=== PATIENT | female | born 1985 | race Caucasian/White ===

== ENCOUNTER 2018-05-02 15:43 | Emergency (ER) | payer OTHER, SELFPAY ==
[2018-05-02 15:45] VITALS: BP 117/66; PULSE 117; RESP 16; TEMP 36.1; O2SAT 99; BMI 23.8
--- NOTE | 2018-05-02 16:07 | ED.DCSUM_ITS ---
- ER Visit Summary Date of Service: 05/02/18 Chief Complaint: Nausea, vomiting, diarrhea History of Present Illness: The patient is a 32 F who woke early this morning feeling ill. She had nausea, vomiting, and diarrhea since 6 AM. She had symptoms of fevers and chills. No one else at home is sick. She does note some dysuria in a dark color to her urine. She is currently 4 months . She has been feeling movement today. She has not had any bleeding or spotting. Physical Examination: Vital signs significant for heart rate of 117, otherwise unremarkable. Patient is lying in bed no acute distress. She is nontoxic appearing. Head neck examination is unremarkable. Heart is tachycardic and regular. Lungs sounds are clear. Abdomen is soft with mild diffuse tenderness. No guarding or rebound. Hypoactive bowel sounds are noted throughout. Test Results: CBC was normal white count with a left shift. Chemistry studies reveal a potassium 3.4. Emergency Department Course and Treatment: Patient is given IV fluids. Zofran was initially ordered but she refused this. She later accepted a dose of Phenergan. heart tones are measured at 152. On repeat examination patient states she still feels nauseated but has been able to tolerate p.o. without difficulty. She will be given a dose of Tylenol and another dose of Phenergan at this time and then will be discharged home. She will get a pr escription for Phenergan that they can fill if needed. Treatment Plan: [] Disposition: Discharge Impression: Vomiting, improved This note was generated with [facility] [employer] dictation software. It may contain incorrect words, spelling, and punctuation that were not noted in review of the chart prior to signing ED Disposition - Plan for ED Patient: Chief Complaint: Nausea/Vomiting/Diarrhea Referrals: Brianna Harris MD [STAFF PHYSICIAN] -
[2018-05-02] MEDS: 0.9% Normal Saline 1,000 ML 1000 ML IV (16:34)
[2018-05-02 16:36] LABS: Absolute Lymphocyte Count 0.26 X10^3/ul (0.83-4.51); Absolute Neutrophil Count 5.6 X10^3/uL (2.0-7.7); Basophil# 0.01 X10^3/uL; Basophil% 0.2 % (0-1); Eosinophil# 0.01 X10^3/uL; Eosinophils% 0.2 % (0-5); Hematocrit 38.4 % (37-47); Hemoglobin 13.3 g/dl (12.0-15.0); Lymphocyte # 0.26 X10^3/ul (4.0); Lymphocyte % 4.2 % (19-41); Mean Corp Hgb Conc 34.6 g/gl (32-36); Mean Corpuscular Hgb 31.7 pg (27.0-32.0); Mean Corpuscular Volume 91.4 fL (81-99); Mean Platelet Vol. 8.8 fl (6.2-12.0); Monocyte# 0.26 X10^3/uL; Monocyte% 4.2 % (0-10); Neutrophil # 5.59 X10^3/uL (2.7-7.7); Platelet Count 194 K/mm3 (150-450); RBC Distribution Width SD 42.5 fl (35.1-43.9); White Blood Count 6.1 K/mm3 (4.4-11.0)
[2018-05-02 16:47] LABS: Anion Gap 10 (5-15); BUN 13 mg/dL (7-18); BUN/Creat Ratio 25.7 RATIO (10-20); Calcium,Total 8.3 mg/dL (8.5-10.1); Chloride 108 mmol/L (98-107); Creatinine, Serum 0.51 mg/dL (0.55-1.02); EST Glomerular Filtration Rate 148 mL/min (>60); Est Glom Filt Rate - Afr Amer 179 mL/min (>60); Estimated Creatinine Clearance 122.93 ml/min; Glucose 116 mg/dL (74-106); Potassium 3.4 mmol/L (3.5-5.1); Sodium Level 140 mmol/L (136-145)
[2018-05-02 17:05] LABS: Differential Indicated SCAN CRITERIA MET; POSITIVE COUNT NO; POSITIVE DIFFERENTIAL YES; POSITIVE MORPHOLOGY NO
[2018-05-02 17:06] LABS: Platelet Estimate ADEQUATE (ADEQ); Red Cell Morphology NORM C+C NORMAL (NORM C&C)
[2018-05-02] MEDS: proMETHazine 25 MG/ML Syringe 12.5 MG IV ×2 (18:32→20:29)
[2018-05-02 18:35] VITALS: BP 112/75; PULSE 109; RESP 14; O2SAT 100
[2018-05-02] MEDS: 0.9% Normal Saline 1,000 ML 150 ML IV (18:35)
[2018-05-02 18:53] LABS: Red Blood Cells-Urine 0 SEEN /hpf (0-5)
[2018-05-02 18:57] LABS: Color, Urine Yellow (Yellow); Glucose, Dipstick Normal (Normal); Leukocyte Esterase-Dipstick Negative /ul (Negative); Nitrite-Dipstick Negative (Negative); Occult Blood-Urine Negative /ul (Negative); Protein-Dipstick Negative (Negative); Urine Bilirubin Dipstick Negative (Negative); Urine Clarity Sl. Cloudy (Clear); Urine Urobilinogen Normal (Normal)
[2018-05-02 19:04] LABS: Ketone-Dipstick 150 mg/dl (Negative)
[2018-05-02 19:05] LABS: Squamous Epithelial Cells - UA 0-5 SEEN /hpf (5-10)
[2018-05-02 19:06] LABS: Bacteria 1+ /hpf (None Seen); Mucous, Urine 1+ /hpf (<or=2+); White Blood Cells 0-5 SEEN /hpf (0-5)
--- NOTE | 2018-05-02 20:12 | ED.DEP ---
ED Disposition - Plan for ED Patient: Disposition: Home or Assisted Living Chief Complaint: Nausea/Vomiting/Diarrhea Instructions: ED Nausea Vomiting Prescriptions: proMETHazine tablet [Phenergan] 25 mg PO Q6H PRN PRN #10 tablet PRN Reason: Nausea Referrals: Brianna Harris MD [STAFF PHYSICIAN] - Amna Naylor MD [STAFF PHYSICIAN] -
[2018-05-02] MEDS: Acetaminophen 500 MG Tablet 1000 MG PO (20:29)
[2018-05-02 20:34] VITALS: BP 108/79; PULSE 108; RESP 17; TEMP 38.3; O2SAT 99
--- NOTE | 2018-05-02 21:07 | ED.RN ---
prior to d/c dr informed of pt fever. pt was already given oral Tylenol for pain control. pt given d/c instructions and told to continue taking tylenol for fever at home if needed. pt was reluctant to leave. [facility] [place] [id number]
--- OUTSIDE RECORDS SUMMARY | 2018-08-04 09:38 | XMS RPT_ITS ---
:1985 Author Organization [facility] Care Team Providers Name Role Phone LARS RESENDEZ (DIOR) Attending Unavailable LARS RESENDEZ (DIOR) Attending Unavailable LARS RESENDEZ (DIOR) Referring Unavailable LARS RESENDEZ (DIOR) Referring Unavailable TONYA CHEN) Attending Unavailable TONYA CHEN) Referring Unavailable Judy Rodriguez Attending Unavailable Quan Chen Primary Care Unavailable PROBLEMS PROBLEMS DATE TYPE CONDITION / CODE ATTENDING STATUS SOURCE 05/09/2018 Unknown R19.7 - Diarrhea, Judy Rodriguez Active [place] unspecified / Community R19.7(ICD-10) Hospital Repository 11/06/2017 Active Encounter for NA Active [facility] general adult [place] medical Repository examination without abnormal findings / Z00.00(ICD-10) 10/02/2017 Active Hypoglycemia, NA Active [facility] unspecified / [place] E16.2(ICD-10) Repository 09/29/2017 Active Other skin NA Active [facility] changes / [place] R23.8(ICD-10) Repository 09/29/2017 Active Encounter for NA Active [facility] screening for [place] diabetes mellitus Repository / Z13.1(ICD-10) 09/29/2017 Active Acute NA Active [facility] pharyngitis, [place] unspecified / Repository J02.9(ICD-10) PROCEDURES PROCEDURES No Procedure Records FoundRESULTS RESULTS EMERGENCY DEPARTMENT Observed: 05/03/2018 Status: F Source: [place] SUMMARY 12:31 AM [facility] RE[facility]ITORY [facility] Medical Records Department [address] [place] [address] Emergency Department Summary 05/02/18 1606 MR#: [id number] Acct: [id number] Name: CORETTA ANGEL Rep #: [id number] : 1985 32 From: Judy Rodriguez MD PCP: Quan Chen MD Status: DEP ER - ER Visit Summary Date of Service: 05/02/18 Chief Complaint: Nausea, vomiting, diarrhea History of Present Illness: The patient is a 32 F who woke early this morning feeling ill. She had nausea, vomiting, and diarrhea since 6 AM. She had symptoms of fevers and chills. No one else at home is sick. She does note some dysuria in a dark color to her urine. She is currently 4 months . She has been feeling movement today. She has not had any bleeding or spotting. Physical Examination: Vital signs significant for heart rate of 117, otherwise unremarkable. Patient is lying in bed no acute distress. She is nontoxic appearing. Head neck examination is unremarkable. Heart is tachycardic and regular. Lungs sounds are clear. Abdomen is soft with mild diffuse tenderness. No guarding or rebound. Hypoactive bowel sounds are noted throughout. Test Results: CBC was normal white count with a left shift. Chemistry studies reveal a potassium 3.4. Emergency Department Course and Treatment: Patient is given IV fluids. Zofran was initially ordered but she refused this. She later accepted a dose of Phenergan. heart tones are measured at 152. On repeat examination patient states she still feels nauseated but has been able to tolerate p.o. without difficulty. She will be given a dose of Tylenol and another dose of Phenergan at this time and then will be discharged home. She will get a prescription for Phenergan that they can fill if needed. Treatment Plan: [] Disposition: Discharge Impression: Vomiting, improved This note was generated with [employer] dictation software. It may contain incorrect words, spelling, and punctuation that were not noted in review of the chart prior to signing ED Disposition - Plan for ED Patient: Chief Complaint: Nausea/Vomiting/Diarrhea Referrals: Brianna Harris MD [STAFF PHYSICIAN] - What to do if you have Problems For any increased pain, shortness of breath, bleeding, nausea or vomiting, chest pain, or any unexpected problems, contact your Primary Care Provider. Call [facility] ([phone]) or report to the closest Emergency Room. Call 911 if necessary. 05/03/18 0031 <Electronically signed by Judy Rodriguez MD> Date Judy Rodriguez MD Cosigner Signature (If Indicated): Date CC: Quan Chen MD DISCHARGE INSTRUCTION Observed: 05/02/2018 Status: F Source: [place] 8:[address] [facility] RE[facility]ITORY [facility] Medical Records Department [address] [place] [address] Discharge Instruction 05/02/182011 MR#: [id number] Acct: [id number] Name: CORETTA ANGEL Rep #: [id number] : 1985 32 From: Judy Rodriguez MD PCP: Quan Chen MD Status: REG ER ED Disposition - Plan for ED Patient: Disposition: Home or Assisted Living Chief Complaint: Nausea/Vomiting/Diarrhea Instructions: ED Nausea Vomiting Prescriptions: proMETHazine tablet [Phenergan] 25 mg PO Q6H PRN PRN #10 tablet PRN Reason: Nausea Referrals: Brianna Harris MD [STAFF PHYSICIAN] - Amna Naylor MD [STAFF PHYSICIAN] - What to do if you have Problems For any increased pain, shortness of breath, bleeding, nausea or vomiting, chest pain, or any unexpected problems, contact your Primary Care Provider. Call [facility] ([phone]) or report to the closest Emergency Room. Call 911 if necessary. 05/02/182012 <Electronically signed by Judy Rodriguez MD> Date Judy Rodriguez MD Cosigner Signature (If Indicated): Date CC: Quan Chen MD URINALYSIS, COMPLETE Collected: 05/02/2018 Status: F Source: [place] 5:[address] [facility] REPOSITORY Order Comment: Order Date: 05/02/18 Has pt arrived? Y How was Urine Obtained? CLEAN CATCH TYPE CODE TESTS RESULT OUT OF RANGE REFERENCE UNITS LAB L400.3000 Yellow COLOR Normal Yellow LAB L400.3050 Clear Normal CLARITY Sl. Cloudy LAB L400.3200 Normal mg/dl Normal GLUCOSE, UR Normal LAB L400.3300 Negative mg/dL Normal BILIRUBIN URINE Negative LAB L400.3400 Negative mg/dl High KETONE UR 150 Result Comment: CRITICAL VALUE VERIFIED. CALLED TO IDANIA FRIAS IN ED 05/02/18 190 Mary Kay Brand. RESULTS READ BACK BY SAME . CRITICAL VALUE *H LAB L400.3465 1.002-1.030 Normal SP.GR. DIPSTX 1.020 LAB L400.3550 5.0 - 8.0 pH Normal UR 5.0 LAB L400.3600 Negative mg/dl Normal PROT DIPSTX Negative LAB L400.3700 Normal mg/dl Normal UROBILI Normal LAB L400.3750 Negative Normal NITRITE UR Negative LAB L400.3780 Negative /ul Normal OCCULT Negative BLOOD-UR LAB L400.3800 Negative /ul Normal LEUK ESTERASE Negative LAB L400.4050 0-5 /hpf Normal WBC 0-5 SEEN LAB L400.4100 0-5 /hpf 0 Normal RBC-UA SEEN LAB L400.4150 5-10 /hpf Normal SQUAM EPI 0-5 SEEN LAB L400.4300 None Seen /hpf 1+ Normal BACTERIA LAB L400.4350 <or=2+ /hpf 1+ Normal MUCUS, URINE Performed By: #### L400.0001 #### [facility] [address] [place], [address] BASIC METABOLIC Collected: 05/02/2018 Status: F Source: [place] PROFILE (BMP) 4:[address] [facility] REPOSITORY TYPE CODE TESTS RESULT OUT OF RANGE REFERENCE UNITS LAB L501.0100 74-106 mg/dL High GLU 116 Result Comment: Fasting Glucose result from 100 to 125 mg/dL suggests IMPAIRED HOMEOSTASIS per A.D.A. criteria. Please note revised GLUCOSE reference range effective 2017. LAB L501.1000 7-18 mg/dL Normal BUN 13 LAB L501.1100 0.55-1.02 mg/dL Low CREAT,SERUM 0.51 Result Comment: The validity of the calculated GFR AND GFRAA in patients over 70 years has not been determined. Clinical correlation is essential. LAB L501.1110 >60 mL/min Normal EST GFR 148 Result Comment: Non- GFR Calc LAB L501.1115 >60 mL/min Normal EST GFR - AA 179 Result Comment: GFR Calc LAB L501.1255 ml/min Normal Estimated CRCL 122.93 LAB L501.1300 10-20 RATIO High BUN/CRE 25.7 LAB L501.2200 8.5-10 mg/dL Low .1 CA 8.3 LAB L501.5300 136-14 mmol/L 5 NA Normal 140 LAB L501.5600 3.5-5. mmol/L Low 1 K 3.4 LAB L501.5900 98-107 mmol/L High CL 108 LAB L501.6100 21.0-3 mmol/L 2.0 CO2 Normal 22.0 LAB L501.6200 5-15 GAP Normal 10 Performed By: #### L500.2500 #### [facility] [address] [place], [address] CBC W/DIFF, AUTOMATED Collected: 05/02/2018 Status: F Source: [place] 4:[address] [facility] REPOSITORY TYPE CODE TESTS RESULT OUT OF RANGE REFERENCE UNITS LAB L100.1000 4.4-11.0 K/mm3 Normal WBC 6.1 LAB L100.1200 4.2-5.4 M/mm3 Normal RBC 4.20 LAB L100.1300 12.0-15.0 g/dl Normal HGB 13.3 LAB L100.1400 37-47 % Normal HCT 38.4 LAB L100.1500 81-99 fL Normal MCV 91.4 LAB L100.1600 27.0-32.0 pg Normal MCH 31.7 LAB L100.1700 32-36 g/gl Normal MCHC 34.6 LAB L100.1810 11.6-14.6 % Normal RDW CV 13.0 LAB L100.1820 35.1-43.9 fl Normal RDW SD 42.5 LAB L100.1900 150-450 K/mm3 Normal PLT 194 LAB L100.2000 6.2-12.0 fl Normal MPV 8.8 LAB L100.2100 47-70 % High NEUT% 91.0 LAB L100.2200 19-41 % Low LY% 4.2 LAB L100.2300 0-10 % Normal MONO% 4.2 LAB L100.2400 0-5 % Normal EO% 0.2 LAB L100.2500 0-1 % Normal BASO% 0.2 LAB L100.2550 0.0-0.9 % Normal IM GRAN % 0.200 Result Comment: IG% - Immature Granulocytes (promyelocytes, myelocytes and metamyelocytes) > 1% indicates that a LEFT SHIFT is Present. LAB L100.2620 2.0-7.7 X10 3/uL Normal Absolute Neut 5.6 LAB L100.2720 0.83-4.51 X10 3/ul Low Absolute Lymph 0.26 LAB L100.4500 SMEAR Normal COMMENT Result Comment: LYMPHOPENIA NOTED LAB L100.5500 ADEQ Normal PLT ADEQUATE EST LAB L100.7000 NORM C AND NORMAL C Normal RED NORM C+C CELL MORPH Performed By: #### L100.0100 #### [facility] [address] [place], [address] LIPID PANEL, BASIC Collected: 11/06/2017 Status: F Source: [place] 8:40 AM [facility] RE[facility] TYPE CODE TESTS RESULT OUT OF REFERENCE UNITS RANGE LAB CHOL <200 mg/dL Cholesterol High 203 Result Comment: <200 mg/dL, Desirable 200-239 mg/dL, Borderline high >239 mg/dL, High LAB TRIGLY <150 mg/dL Triglyceride 71 Result Comment: <150 mg/dL, Normal 150-199 mg/dL, Borderline high 200-499 mg/dL, High >499 mg/dL, Very high LAB HDL >39 mg/dL HDL-Cholesterol 69 Result Comment: 40-59 mg/dL, Acceptable >59 mg/dL, High: Negative risk factor for coronary heart disease <40 mg/dL, Low: Positive risk factor for coronary heart disease LAB LDL <100 mg/dL LDL-Cholesterol High 120 Result Comment: <100 mg/dL, Optimal 100-129 mg/dL, Near optimal/above optimal 130-159 mg/dL, Borderline high 160-189 mg/dL, High >189 mg/dL, Very high Secondary prevention optimal LDL Cholesterol levels are recommended to be < 70 mg/dL LAB NONHDL <130 mg/dL Non HDL High Cholesterol 134 Result Comment: <130 mg/dL, Optimal 130-159 mg/dL, Near optimal/above optimal 160-189 mg/dL, Borderline high 190-219 mg/dL, High >219 mg/dL, Very high Secondary prevention optimal non HDL Cholesterol levels are recommended to be < 100 mg/dL LAB FT hrs Fasting Time 12 LAB VLDL <30 mg/dL VLDL Cholesterol 14 LAB TCHDL <5.10 TC:HDL Ratio 2.94 LAB LDLHDL <2.54 LDL:HDL Ratio 1.74 Result Comment: Reference: 1. National Cholesterol Education Program ATP III Guideline At-A-Glance Quick Desk Reference: National Heart, Lung, and Blood [place]. National Institutes of Health. 2001: NIH Publication No. 01-3305. 2. An International Atherosclerosis Society position paper: global recommendations for the management of dyslipidemia: executive summary, Atherosclerosis. 2014: 232(2):410-413. Performed By: #### LIPB #### [facility] [address] [address] PROGRESS Observed: 11/06/2017 Status: COMPLETED Source: [place] 8:05 AM [facility] REPOSITORY HNO ID: [id number] Author: Tonya Hernández) April Service: (none) Author Type: Physician Type: Progress Notes Filed: 11/06/2017 8:31 AM Note Text: Chief Complaint Patient presents with: Wellness: exam for employement forms wit her HPI Coretta Angel is a 32 year old female who presents here today for annual physical and establish care visit. Needs paperwork filled out for insurance discount. 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 Last pap was in 2016 and was normal with negative HPV. Family history of cervical cancer at young age with mother age 30s. Unsure when her next appointment is, but is trying to conceive so expects it will be soon. Eats healthy diet and exercises regularly with DVDs at home 3-4 times per week. Devyn Rosales. Up to date on . Needs updated fasting lipid panel. Past medical history, appointments, medications, allergies reviewed. Previous Medical History PAST MEDICAL HISTORY Diagnosis Date - GERD (gastroesophageal reflux disease) Previous Surgical History PAST SURGICAL HISTORY Procedure Laterality Date - EXTRACTION ERUPTED TOOTH/EXR Family History FAMILY HISTORY Problem Relation Age of Onset - Cancer Father prostate - Cancer Mother Cervical - Diabetes Maternal Grandmother - Heart Maternal Grandmother 54 - Heart Maternal Grandfather 72 - Prostate Cancer Paternal Grandmother - Heart Paternal Grandfather Patient Allergies ALLERGIES Allergen Reactions - Sulfa (Sulfonamide * Rash Current Medications No current outpatient prescriptions on file prior to visit. No current facility-administered medications on file prior to visit. 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 Main Topics Smoking status: Never Smoker Smokeless tobacco: Never Used Alcohol use: No Drug use: No Sexual activity: Yes Partners with: Male control/protection: Pill Review of Symptoms REVIEW OF SYSTEMS GENERAL: No weight loss, malaise or fevers HEENT: Negative for frequent or significant headaches, No changes in hearing or vision, no nose bleeds or other nasal problems NECK: Negative for lumps, goiter, pain and significant neck swelling RESPIRATORY: Negative for cough, hemoptysis, wheezing, COPD, dyspnea or shortness of breath CARDIOVASCULAR: Negative for chest pain, leg swelling, hypertension, CHF or palpitations GI: No nausea, vomiting, or diarrhea : No history of dysuria, frequency, Stress incontinence 2/2 childbirth BIOMEDICAL SCIENTIST: Negative for abnormal vaginal bleeding, abnormal vaginal discharge MUSCULOSKELETAL: Negative for joint pain or swelling, back pain or muscle pain SKIN: Negative for lesions, rash, and itching EXAM: BP 110/62 (BP Site: Left Arm, BP Position: Sitting, BP Cuff Size: Regular Adult) Pulse 64 Resp 16 Ht 158.8 cm (5' 2.5) Wt 59.4 kg (131 lb 0.6 oz) BMI 23.59 kg/m? General Appearance: Well appearing, alert, in no acute distress, well-hydrated, well nourished.. Skin: Skin color, texture, turgor normal, no suspicious rashes or lesions. Head: Normocephalic, no masses, lesions, tenderness or abnormalities. Eyes: Anicteric sclera. Pupils are equally round and reactive to light. Extraocular movements are intact. . Ears: External ears normal, canals clear. Oropharynx: Lips, mucosa, and tongue normal, teeth and gums normal, oropharynx normal. Neck: Supple, no adenopathy; thyroid symmetric, normal size, no bruits. Lungs: Lungs clear to auscultation. No wheezing, rhonchi, rales. Heart: RRR without murmur, gallop, or rubs. No ectopy. Abdomen: Normal abdominal exam, Abdomen soft, non-tender. Bowel sounds normal. No masses, organomegaly. Extremities: No deformities, edema, skin discoloration, clubbing or cyanosis. Good capillary refill. . Health Maintenance List INFLUENZA(Season Ended) due on 01/15/2018 PAP EVERY 5 YEARS due on 09/29/2020 HPV EVERY 5 YEARS due on 09/29/2020 DTAP,TDAP,TD(3 - Td) due on 12/02/2026 Data reviewed Component Latest Ref Rng AND Units 09/29/2017 10/02/2017 WBC 3.70 - 11.00 k/uL 5.25 RBC 3.90 - 5.20 m/uL 4.70 Hemoglobin 11.5 - 15.5 g/dL 13.8 Hematocrit 36.0 - 46.0 % 43.1 MCV 80.0 - 100.0 fL 91.7 MCH 26.0 - 34.0 pG 29.4 MCHC 30.5 - 36.0 g/dL 32.0 RDW-CV 11.5 - 15.0 % 12.9 Platelet Count 150 - 400 k/uL 315 MPV 9.0 - 12.7 fL 9.3 Neut% % 51.5 Abs Neut (ANC) 1.45 - 7.50 k/uL 2.69 Lymph% % 37.0 Abs Lymph 1.00 - 4.00 k/uL 1.94 [place]% % 8.4 Abs [place] <0.87 k/uL 0.44 Eosin% % 2.3 Abs Eosin <0.46 k/uL 0.12 Baso% % 0.8 Abs Baso <0.11 k/uL 0.04 Nucleated Reds 0 /100 WBC 0.0 Absolute nRBC <0.01 k/uL <0.01 Diff Type Auto Diff Protein, Total 6.3 - 8.0 g/dL 7.2 Albumin 3.9 - 4.9 g/dL 4.7 Calcium 8.5 - 10.2 mg/dL 9.6 Bilirubin, Total 0.2 - 1.3 mg/dL 0.4 Alkaline Phosphatase 32 - 117 U/L 72 AST 13 - 35 U/L 17 Glucose 74 - 99 mg/dL 48 (L) BUN 7 - 21 mg/dL 11 Creatinine 0.58 - 0.96 mg/dL 0.71 Sodium 136 - 144 mmol/L 142 Potassium 3.7 - 5.1 mmol/L 3.7 Chloride 97 - 105 mmol/L 103 CO2 22 - 30 mmol/L 24 Anion Gap 9 - 18 mmol/L 15 ALT 7 - 38 U/L 8 eGFR- >60 eGFR-All Other Races . >60 [place] Slide Test Negative Negative Glucose, Fasting 74 - 99 mg/dL 84 ASSESSMENT/PLAN: 1. Annual physical exam - ICD9: V70.0, ICD10: Z00.00 (primary diagnosis) - Recommended calcium intake with supplements or by diet (goal of 6737-8128 mg/day - Recommended regular aerobic exercise. - Check fasting lipid panel - Follow up for annual exam in one year. - LIPID PANEL BASIC 2. Gastroesophageal reflux disease, esophagitis presence not specified - ICD9: 530.81, ICD10: K21.9 Asymptomatic at this time. Takes Zantac PRN. Working on diet control. 3. Irritable bowel syndrome with diarrhea - ICD9: 564.1, ICD10: K58.0 No recent symptoms. Does not want further treatment today as she tries to treat issues naturally. Tonya Chen MD CNOV Observed: 11/06/2017 Status: COMPLETED Source: [place] 8:00 AM [facility] REPOSITORY Office Visit (FAMPWS) CORETTA ANGEL ([id number]) 1985 F Date Time Provider Department 11/06/17 8:00 AM TONYA CHEN) TEJINDER During your visit today, we recorded the following information about you: Pulse Respiration Blood pressure Weight 64/minute 16/minute 110/62 59.4 kg Height 1.588 m Tonya Chen MD 11/06/2017 8:31 AM Signed Chief Complaint Patient presents with: Wellness: exam for employement forms wit her HPI Coretta Angel is a 32 year old female who presents here today for annual physical and establish care visit. Needs paperwork filled out for insurance discount. 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 Last pap was in 2016 and was normal with negative HPV. Family history of cervical cancer at young age with mother age 30s. Unsure when her next appointment is, but is trying to conceive so expects it will be soon. Eats healthy diet and exercises regularly with DVDs at home 3-4 times per week. Devyn Rosales. Up to date on . Needs updated fasting lipid panel. Past medical history, appointments, medications, allergies reviewed. Previous Medical History PAST MEDICAL HISTORY Diagnosis Date - GERD (gastroesophageal reflux disease) Previous Surgical History PAST SURGICAL HISTORY Procedure Laterality Date - EXTRACTION ERUPTED TOOTH/EXR Family History FAMILY HISTORY Problem Relation Age of Onset - Cancer Father prostate - Cancer Mother Cervical - Diabetes Maternal Grandmother - Heart Maternal Grandmother 54 - Heart Maternal Grandfather 72 - Prostate Cancer Paternal Grandmother - Heart Paternal Grandfather Patient Allergies ALLERGIES Allergen Reactions - Sulfa (Sulfonamide * Rash Current Medications No current outpatient prescriptions on file prior to visit. No current facility-administered medications on file prior to visit. 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[employer]* Social History Main Topics Smoking status: Never Smoker Smokeless tobacco: Never Used Alcohol use: No Drug use: No Sexual activity: Yes Partners with: Male control/protection: Pill Review of Symptoms REVIEW OF SYSTEMS GENERAL: No weight loss, malaise or fevers HEENT: Negative for frequent or significant headaches, No changes in hearing or vision, no nose bleeds or other nasal problems NECK: Negative for lumps, goiter, pain and significant neck swelling RESPIRATORY: Negative for cough, hemoptysis, wheezing, COPD, dyspnea or shortness of breath CARDIOVASCULAR: Negative for chest pain, leg swelling, hypertension, CHF or palpitations GI: No nausea, vomiting, or diarrhea : No history of dysuria, frequency, Stress incontinence 2/2 childbirth BIOMEDICAL SCIENTIST: Negative for abnormal vaginal bleeding, abnormal vaginal discharge MUSCULOSKELETAL: Negative for joint pain or swelling, back pain or muscle pain SKIN: Negative for lesions, rash, and itching EXAM: BP 110/62 (BP Site: Left Arm, BP Position: Sitting, BP Cuff Size: Regular Adult) Pulse 64 Resp 16 Ht 158.8 cm (5' 2.5) Wt 59.4 kg (131 lb 0.6 oz) BMI 23.59 kg/m? General Appearance: Well appearing, alert, in no acute distress, well-hydrated, well nourished.. Skin: Skin color, texture, turgor normal, no suspicious rashes or lesions. Head: Normocephalic, no masses, lesions, tenderness or abnormalities. Eyes: Anicteric sclera. Pupils are equally round and reactive to light. Extraocular movements are intact. . Ears: External ears normal, canals clear. Oropharynx: Lips, mucosa, and tongue normal, teeth and gums normal, oropharynx normal. Neck: Supple, no adenopathy; thyroid symmetric, normal size, no bruits. Lungs: Lungs clear to auscultation. No wheezing, rhonchi, rales. Heart: RRR without murmur, gallop, or rubs. No ectopy. Abdomen: Normal abdominal exam, Abdomen soft, non-tender. Bowel sounds normal. No masses, organomegaly. Extremities: No deformities, edema, skin discoloration, clubbing or cyanosis. Good capillary refill. . Health Maintenance List INFLUENZA(Season Ended) due on 01/15/2018 PAP EVERY 5 YEARS due on 09/29/2020 HPV EVERY 5 YEARS due on 09/29/2020 DTAP,TDAP,TD(3 - Td) due on 12/02/2026 Data reviewed Component Latest Ref Rng AND Units 09/29/2017 10/02/2017 WBC 3.70 - 11.00 k/uL 5.25 RBC 3.90 - 5.20 m/uL 4.70 Hemoglobin 11.5 - 15.5 g/dL 13.8 Hematocrit 36.0 - 46.0 % 43.1 MCV 80.0 - 100.0 fL 91.7 MCH 26.0 - 34.0 pG 29.4 MCHC 30.5 - 36.0 g/dL 32.0 RDW-CV 11.5 - 15.0 % 12.9 Platelet Count 150 - 400 k/uL 315 MPV 9.0 - 12.7 fL 9.3 Neut% % 51.5 Abs Neut (ANC) 1.45 - 7.50 k/uL 2.69 Lymph% % 37.0 Abs Lymph 1.00 - 4.00 k/uL 1.94 [place]% % 8.4 Abs [place] <0.87 k/uL 0.44 Eosin% % 2.3 Abs Eosin <0.46 k/uL 0.12 Baso% % 0.8 Abs Baso <0.11 k/uL 0.04 Nucleated Reds 0 /100 WBC 0.0 Absolute nRBC <0.01 k/uL <0.01 Diff Type Auto Diff Protein, Total 6.3 - 8.0 g/dL 7.2 Albumin 3.9 - 4.9 g/dL 4.7 Calcium 8.5 - 10.2 mg/dL 9.6 Bilirubin, Total 0.2 - 1.3 mg/dL 0.4 Alkaline Phosphatase 32 - 117 U/L 72 AST 13 - 35 U/L 17 Glucose 74 - 99 mg/dL 48 (L) BUN 7 - 21 mg/dL 11 Creatinine 0.58 - 0.96 mg/dL 0.71 Sodium 136 - 144 mmol/L 142 Potassium 3.7 - 5.1 mmol/L 3.7 Chloride 97 - 105 mmol/L 103 CO2 22 - 30 mmol/L 24 Anion Gap 9 - 18 mmol/L 15 ALT 7 - 38 U/L 8 eGFR- >60 eGFR-All Other Races . >60 [place] Slide Test Negative Negative Glucose, Fasting 74 - 99 mg/dL 84 ASSESSMENT/PLAN: 1. Annual physical exam - ICD9: V70.0, ICD10: Z00.00 (primary diagnosis) - Recommended calcium intake with supplements or by diet (goal of 5757-1998 mg/day - Recommended regular aerobic exercise. - Check fasting lipid panel - Follow up for annual exam in one year. - LIPID PANEL BASIC 2. Gastroesophageal reflux disease, esophagitis presence not specified - ICD9: 530.81, ICD10: K21.9 Asymptomatic at this time. Takes Zantac PRN. Working on diet control. 3. Irritable bowel syndrome with diarrhea - ICD9: 564.1, ICD10: K58.0 No recent symptoms. Does not want further treatment today as she tries to treat issues naturally. Tonya Chen MD Allergies As of Date: 11/06/2017 Noted Allergy Reaction SULFA (SULFONAMIDE ANTIBIOTICS) 09/06/2017 2 - Rash TETANUS TOXOID 11/06/2017 14 - Other: See Comments Comments: Abdominal pain, weakness Date Reviewed: 11/06/2017 Reviewed by: Ofelia Aldana LPN - Fully Assessed Reason for Visit: Wellness [440] Cmt: exam for employement forms wit her Primary Visit Diagnosis:Annual physical exam [Z00.00] Other Visit Diagnoses:Gastroesophageal reflux disease, esophagitis presence not specified [K21.9] Irritable bowel syndrome with diarrhea [K58.0] Order(s):LIPID PANEL BASIC [SQLIPB] Order #: [id number] FUTURE Prescriptions as of 11/06/2017 Sig: MULTIVITAMIN CAPSULE Take 1 capsule by mouth once * Problem List As Of Date 11/06/2017 Noted Resolved Patellofemoral pain syndrome [M22.2X9] INVALID FOR* GERD (gastroesophageal reflux disease) [K21.9] IBS (irritable bowel syndrome) [K58.9] Disposition: Return in about 1 year (around 11/06/2018). Follow-up and Disposition History Recorded Encounter Status:Closed by TONYA CHEN MD on 11/06/17 GLUCOSE, FASTING Collected: 10/02/2017 Status: F Source: [place] 8:[address] [facility] REPOSITORY TYPE CODE TESTS RESULT OUT OF REFERENCE UNITS RANGE LAB GLF 74-99 mg/dL Glucose, 84 Fasting Result Comment: [place] Diabetes Association guidelines state that a diabetes mellitus diagnosis is preliminarily made when the fasting plasma glucose meets or exceeds 126 mg/dL. In the absence of unequivocal hyperglycemia, results should be confirmed with repeat testing. Patients are at increased risk for diabetes mellitus (prediabetes) when the fasting glucose is 100 to 125 mg/dL. Performed By: #### GLF #### [facility] [address], [place] [address] CBC AND DIFFERENTIAL Collected: 09/29/2017 Status: F Source: [place] 8:25 AM [facility] REPOSITORY TYPE CODE TESTS RESULT OUT OF REFERENCE UNITS RANGE LAB WBC 3.70-11.00 k/uL WBC 5.25 LAB RBC 3.90-5.20 m/uL RBC 4.70 LAB HGB 11.5-15.5 g/dL Hemoglobin 13.8 LAB HCT 36.0-46.0 % Hematocrit 43.1 LAB MCV 80.0-100.0 fL MCV 91.7 LAB MCH 26.0-34.0 pG MCH 29.4 LAB MCHC 30.5-36.0 g/dL MCHC 32.0 LAB RDWCV 11.5-15.0 % RDW-CV 12.9 LAB PLTCT 150-400 k/uL Platelet Count 315 LAB MPV 9.0-12.7 fL MPV 9.3 LAB ANEUT % Neut% 51.5 LAB AANEUT 1.45-7.50 k/uL Abs Neut 2.69 LAB ALYMP % Lymph% 37.0 LAB AALYMP 1.00-4.00 k/uL Abs Lymph 1.94 LAB AMONO % [place]% 8.4 LAB AAMONO <0.87 k/uL Abs [place] 0.44 LAB AEOS % Eosin% 2.3 LAB AAEOS <0.46 k/uL Abs Eosin 0.12 LAB ABASO % Baso% 0.8 LAB AABASO <0.11 k/uL Abs Baso 0.04 LAB AUNRBC 0 /100 WBC NRBCs 0.0 LAB ABNRBC <0.01 k/uL Absolute nRBC <0.01 LAB DTYP DTYPE Auto Diff Performed By: #### CBCDIF, CMP, MONOLX #### [facility] [address] [place], [place] [address] COMP METABOLIC PANEL Collected: 09/29/2017 Status: F Source: [place] 8:25 [facility] REPOSITORY TYPE CODE TESTS RESULT OUT OF REFERENCE UNITS RANGE LAB TP 6.3-8.0 g/dL Protein, Total 7.2 LAB ALB 3.9-4.9 g/dL Albumin 4.7 LAB CA 8.5-10.2 mg/dL Calcium, Total 9.6 LAB TBIL 0.2-1.3 mg/dL Bilirubin, Total 0.4 LAB ALKP 32-117 U/L Alkaline Phosphatase 72 LAB AST 13-35 U/L AST 17 LAB GLU 74-99 mg/dL Low Glucose 48 Result Comment: The [place] Diabetes Association (ADA) provides guidance for cutoff values for fasting glucose and random glucose. The ADA defines fasting as no caloric intake for at least 8 hours. Fas ting plasma glucose results between 100 to 125 mg/dL indicate increased risk for diabetes (prediabetes). Fasting plasma glucose results greater than or equal to 126 mg/dL meet the criteria for diagnosis of diabetes. In the absence of unequivocal hyperglycemia, results should be confirmed by repeat testing. In a patient with classic symptoms of hyperglycemia or hyperglycemic crisis, random plasma glucose results greater than or equal to 200 mg/dL meet the criteria for diagnosis of diabetes. Reference: Standards of Medical Care in Diabetes 2016, [place] Diabetes Association. Diabetes Care. 2016.39(Suppl 1). No call per procedure. 09/29/17 1846 [address] [place] LAB BUN 7-21 mg/dL BUN 11 LAB CRET 0.58-0.96 mg/dL Creatinine 0.71 LAB NA 136-144 mmol/L Sodium 142 LAB K 3.7-5.1 mmol/L Potassium 3.7 LAB CL 97-105 mmol/L Chloride 103 LAB CO2 22-30 mmol/L CO2 24 LAB AGAP 9-18 mmol/L Anion Gap 15 LAB ALT 7-38 U/L ALT 8 LAB GFRAA eGFR- Amer. >60 LAB GFRNAA . eGFR-All Other Races >60 Result Comment: eGFR (Estimated GFR) Units of measure: mL/min/1.73 meters squared eGFR is derived from the reexpressed MDRD Study equation using the following parameters: serum creatinine, age, gender and race. The creatinine assay has been calibrated to be traceable to IDMS. An eGFR <60 mL/min/1.73m2 for >3 months is consistent with chronic kidney disease. Refer to KDOQI guidelines for clinical interpretation. In patients with unstable renal function, e.g. those with acute kidney injury, the eGFR may not accurately reflect actual GFR. Performed By: #### CBCDIF, CMP, MONOLX #### [facility] [address] [place], [place] [address] MONO SLIDE TEST Collected: 09/29/2017 Status: F Source: [place] 8:[address] [facility] REPOSITORY TYPE CODE TESTS RESULT OUT OF REFERENCE UNITS RANGE LAB MONOLX Negative [place] Negative Slide Test Performed By: #### CBCDIF, CMP, MONOLX #### [facility] [address] [place], [place] [address] PROGRESS Observed: 09/29/2017 Status: COMPLETED Source: [place] 7:43 AM [facility] REPOSITORY HNO ID: [id number] Author: Jared Resendez Service: (none) Author Type: Physician Vest Busheler Type: Progress Notes Filed: 09/29/2017 8:09 AM Note Text: Patient presents with: Fatigue Cough Mass 32 year old female with c/o URI sx over the last 2 weeks with Sore throat: Yes. Nasal congestion: Yes. Nasal drip: No. Sinus pain/ pressure: No. Headache No. Body aches No. Ear pain: No. Cough: Yes. Production: No. Shortness of Breath: No. Wheezing: No. Fever: No. Tmax n/a. Hx asthma No. Hx pneumonia No. Smoker: No. OTC meds tried: Claritin. Patient was treated with antibiotics on September 06. She initially did notice improvement. Around September 16 symptoms started to return. She did try claritin for 3 days. Then she switched to zantac. She did feel some improvement with the zantac Has noticed some bruising on legs and she is concerned. ACTIVE PROBLEM LIST Patellofemoral Pain Syndrome No current outpatient prescriptions on file. No current facility-administered medications for this visit. ROS: SEE HPI OBJECTIVE: BP 104/68 Pulse 80 Temp 36.5 ?C (97.7 ?F) (Tympanic) Resp 12 Wt 59.9 kg (132 lb) LMP 09/20/2017 (Exact Date) BMI 23.38 kg/m? General appearance: Well appearing, alert, in no acute distress, well-hydrated, well nourished., Head: Normocephalic, no masses, lesions, tenderness or abnormalities; Ears: External ears normal, canals clear, TM's normal Nose/Sinuses: Nares normal, septum midline, mucosa normal, no drainage or sinus tenderness Oropharynx: Positive findings: moderate oropharyngeal erythema Neck: Supple, no adenopathy; thyroid symmetric, normal size, no bruits Lungs: Lungs clear to auscultation. No wheezing, rhonchi, rales Heart: RRR without murmur, gallop, or rubs. No ectopy ASSESSMENT/PLAN: 1. Pharyngitis, unspecified etiology - ICD9: 462, ICD10: J02.9 (primary diagnosis) Patient initially did have improvement with antibiotic as well as zantac. I advise to continue zantac for additional 3-5 days and if symptoms are worsening to then start the 2nd round of antibiotic. If symptoms continue, may need ENT consult for their opinion 2. Easy bruising - ICD9: 782.9, ICD10: R23.8 Check - CBC + DIFF - COMP METABOLIC PANEL 3. Screening for diabetes mellitus - ICD9: V77.1, ICD10: Z13.1 check - COMP METABOLIC PANEL She is to schedule OV with PCP in near future. LARS RESENDEZ PA-C CNOV Observed: 09/29/2017 Status: COMPLETED Source: [place] 7:40 AM [facility] REPOSITORY Office Visit (FAMPWS) CORETTA ANGEL ([id number]) 1985 F Date Time Provider Department 09/29/17 7:40 AM NATHANAEL RESENDEZ) FAMPWS During your visit today, we recorded the following information about you: Temperature Pulse Respiration Blood pressure 97.7 degrees 80/minute 12/minute 104/68 Weight Last Period 59.9 kg 09/20/17 LARS RESENDEZ PA-C 09/29/2017 8:09 AM Signed Patient presents with: Fatigue Cough Mass 32 year old female with c/o URI sx over the last 2 weeks with Sore throat: Yes. Nasal congestion: Yes. Nasal drip: No. Sinus pain/ pressure: No. Headache No. Body aches No. Ear pain: No. Cough: Yes. Production: No. Shortness of Breath: No. Wheezing: No. Fever: No. Tmax n/a. Hx asthma No. Hx pneumonia No. Smoker: No. OTC meds tried: Claritin. Patient was treated with antibiotics on September 06. She initially did notice improvement. Around September 16 symptoms started to return. She did try claritin for 3 days. Then she switched to zantac. She did feel some improvement with the zantac Has noticed some bruising on legs and she is concerned. ACTIVE PROBLEM LIST Patellofemoral Pain Syndrome No current outpatient prescriptions on file. No current facility-administered medications for this visit. ROS: SEE HPI OBJECTIVE: BP 104/68 Pulse 80 Temp 36.5 ?C (97.7 ?F) (Tympanic) Resp 12 Wt 59.9 kg (132 lb) LMP 09/20/2017 (Exact Date) BMI 23.38 kg/m? General appearance: Well appearing, alert, in no acute distress, well-hydrated, well nourished., Head: Normocephalic, no masses, lesions, tenderness or abnormalities; Ears: External ears normal, canals clear, TM's normal Nose/Sinuses: Nares normal, septum midline, mucosa normal, no drainage or sinus tenderness Oropharynx: Positive findings: moderate oropharyngeal erythema Neck: Supple, no adenopathy; thyroid symmetric, normal size, no bruits Lungs: Lungs clear to auscultation. No wheezing, rhonchi, rales Heart: RRR without murmur, gallop, or rubs. No ectopy ASSESSMENT/PLAN: 1. Pharyngitis, unspecified etiology - ICD9: 462, ICD10: J02.9 (primary diagnosis) Patient initially did have improvement with antibiotic as well as zantac. I advise to continue zantac for additional 3-5 days and if symptoms are worsening to then start the 2nd round of antibiotic. If symptoms continue, may need ENT consult for their opinion 2. Easy bruising - ICD9: 782.9, ICD10: R23.8 Check - CBC + DIFF - COMP METABOLIC PANEL 3. Screening for diabetes mellitus - ICD9: V77.1, ICD10: Z13.1 check - COMP METABOLIC PANEL She is to schedule OV with PCP in near future. ANIBAL SANCHEZ PA-C 09/29/2017 8:33 AM Signed Addended by: LARS BLOCK on: 09/29/2017 08:33 AM Modules accepted: Orders Referring Provider: SELF [200] Allergies As of Date: 09/29/2017 Noted Allergy Reaction SULFA (SULFONAMIDE ANTIBIOTICS) 09/06/2017 2 - Rash Date Reviewed: 09/29/2017 Reviewed by: Jared Resendez - Fully Assessed Reason for Visit: Fatigue [46] Cough [28] Mass [64] Primary Visit Diagnosis:Pharyngitis, unspecified etiology [J02.9] Other Visit Diagnoses:Easy bruising [R23.8] Screening for diabetes mellitus [Z13.1] Order(s):CBC + DIFF [SQCBCDIF] Order #: [id number] FUTURE COMP METABOLIC PANEL [SQCMP] Order #: [id number] FUTURE cefADROxil (DURICEF) 500 mg capsuleTake 1 capsule by mouth twice daily for 10 days.Disp: 20 capsuleRfl: 0 MONOTEST, INFECTIOUS MONO [SQMONOLX] Order #: [id number] FUTURE Prescriptions as of 09/29/2017 Sig: CEFADROXIL 500 MG CAPSULE Take 1 capsule by mouth twice* Problem List As Of Date 09/29/2017 Noted Resolved Patellofemoral pain syndrome [M22.2X9] INVALID FOR* Prescriptions ordered this encounter Disp Refills Start End CEFADROXIL 500 MG CAPSULE 20 c* 0 09/29/2017 10/09/2017 Class: Print RX Route: ORAL Sig: Take 1 capsule by mouth twice daily for 10 days. Encounter Status:Closed by LARS BLOCK on 09/29/17 PROGRESS Observed: 09/06/2017 Status: COMPLETED Source: [place] 7:47 AM [facility] O ID: [id number] Author: Jared Resendez Service: (none) Author Type: Physician Vest Busheler Type: Progress Notes Filed: 09/06/2017 8:05 AM Note Text: Patient presents with: Head Congestion Sore Throat 31 year old female with c/o URI sx over the last 3 weeks with Sore throat: Yes. Nasal congestion: Yes. Nasal drip: No. Sinus pain/ pressure: No. Headache No. Body aches No. Ear pain: No. Cough: Yes. Production: No. Shortness of Breath: No. Wheezing: No. Fever: No. Tmax n/a. Hx asthma No. Hx pneumonia No. Smoker: No. OTC meds tried: Emerg-n-c.. Tried GERD treatments. Multiple conservative treatments ACTIVE PROBLEM LIST Patellofemoral Pain Syndrome No current outpatient prescriptions on file. No current facility-administered medications for this visit. ROS: SEE HPI OBJECTIVE: BP 120/70 Pulse 64 Temp 36.1 ?C (97 ?F) (Tympanic) Resp 12 Wt 59.4 kg (131 lb) LMP (LMP Unknown) BMI 23.21 kg/m2 General appearance: Well appearing, alert, in no acute distress, well-hydrated, well nourished., Head: Normocephalic, no masses, lesions, tenderness or abnormalities; Ears: External ears normal, canals clear, TM's normal Nose/Sinuses: Positive findings: mucosa erythematous and swollen Oropharynx: Positive findings: moderate oropharyngeal erythema Neck: Supple, no adenopathy; Lungs: Lungs clear to auscultation. No wheezing, rhonchi, rales Heart: RRR without murmur, gallop, or rubs. No ectopy ASSESSMENT/PLAN: 1. Pharyngitis, unspecified etiology - ICD9: 462, ICD10: J02.9 Start antibiotic If no improvement consider Trial of zantac or possibly claritin - AMOXICILLIN 875 MG-POTASSIUM CLAVULANATE 125 MG TABLET Prescription instructions reviewed with patient as applicable. Patient advised if symptoms do not improve or if symptoms worsen sooner, to contact their primary care physician. Potential red flag symptoms discussed with the patient. Reviewed appropriate action plan to take if red flag symptoms occur. Patient agreeable to treatment plan. ANIBAL SANCHEZ Observed: 09/06/2017 Status: COMPLETED Source: [place] 7:40 AM [facility] Office Visit (FAMPWS) CORETTA ANGEL ([id number]) 1985 F Date Time Provider Department 09/06/17 7:40 AM NATHANAEL RESENDEZ) TEJINDER During your visit today, we recorded the following information about you: Temperature Pulse Respiration Blood pressure 97 degrees 64/minute 12/minute 120/70 Weight 59.4 kg LARS RESENDEZ PA-C 09/06/2017 8:05 AM Signed Patient presents with: Head Congestion Sore Throat 31 year old female with c/o URI sx over the last 3 weeks with Sore throat: Yes. Nasal congestion: Yes. Nasal drip: No. Sinus pain/ pressure: No. Headache No. Body aches No. Ear pain: No. Cough: Yes. Production: No. Shortness of Breath: No. Wheezing: No. Fever: No. Tmax n/a. Hx asthma No. Hx pneumonia No. Smoker: No. OTC meds tried: Emerg-n-c.. Tried GERD treatments. Multiple conservative treatments ACTIVE PROBLEM LIST Patellofemoral Pain Syndrome No current outpatient prescriptions on file. No current facility-administered medications for this visit. ROS: SEE HPI OBJECTIVE: BP 120/70 Pulse 64 Temp 36.1 ?C (97 ?F) (Tympanic) Resp 12 Wt 59.4 kg (131 lb) LMP (LMP Unknown) BMI 23.21 kg/m2 General appearance: Well appearing, alert, in no acute distress, well-hydrated, well nourished., Head: Normocephalic, no masses, lesions, tenderness or abnormalities; Ears: External ears normal, canals clear, TM's normal Nose/Sinuses: Positive findings: mucosa erythematous and swollen Oropharynx: Positive findings: moderate oropharyngeal erythema Neck: Supple, no adenopathy; Lungs: Lungs clear to auscultation. No wheezing, rhonchi, rales Heart: RRR without murmur, gallop, or rubs. No ectopy ASSESSMENT/PLAN: 1. Pharyngitis, unspecified etiology - ICD9: 462, ICD10: J02.9 Start antibiotic If no improvement consider Trial of zantac or possibly claritin - AMOXICILLIN 875 MG-POTASSIUM CLAVULANATE 125 MG TABLET Prescription instructions reviewed with patient as applicable. Patient advised if symptoms do not improve or if symptoms worsen sooner, to contact their primary care physician. Potential red flag symptoms discussed with the patient. Reviewed appropriate action plan to take if red flag symptoms occur. Patient agreeable to treatment plan. ANIBAL SANCHEZ PA-C 09/06/2017 8:00 AM Signed Follow up in 1 week if no improvement. Take all of the antibiotic as directed per prescription. If you should breakout in a rash, stop the medicine and call the office. Any antibiotic has the potential to cause diarrhea due to alteration in the normal bacterial herminio of the gut. This can be reduced by eating yogurt with active cultures daily while on the medication. If diarrhea becomes severe (watery, large volumes or more than 3-4/day) call the office. Women may experience yeast vaginitis due to alteration in the vaginal herminio. Symptoms include vaginal itching, irritation, and often a clumpy white discharge. If this occurs, there are several effective over the counter remedies available, including one-dose treatments. If these are unsuccessful, call the office. Antibiotics may interfer with control. If you are on oral contraceptives, use another form of protection (condoms, foams, jellies, diaphragm) for the next 1 month. LARS RESENDEZ PA-C Referring Provider: SELF [200] Allergies As of Date: 09/06/2017 Noted Allergy Reaction SULFA (SULFONAMIDE ANTIBIOTICS) 09/06/2017 2 - Rash Date Reviewed: 09/06/2017 Reviewed by: Nathanael) Mal - Fully Assessed Reason for Visit: Head Congestion [234] Sore Throat [200] Primary Visit Diagnosis:Pharyngitis, unspecified etiology [J02.9] Order(s):amoxicillin-clavulanic acid (AUGMENTIN) 875-125 mg per tabletTake 1 tablet by mouth twice daily for 10 days.Disp: 20 tabletRfl: 0 Prescriptions as of 09/06/2017 Sig: AMOXICILLIN 875 MG-POTASSIUM * Take 1 tablet by mouth twice * Problem List As Of Date 09/06/2017 Noted Resolved Patellofemoral pain syndrome [M22.2X9] INVALID FOR* Other instructions from your clinician: Follow up in 1 week if no improvement. Take all of the antibiotic as directed per prescription. If you should breakout in a rash, stop the medicine and call the office. Any antibiotic has the potential to cause diarrhea due to alteration in the normal bacterial herminio of the gut. This can be reduced by eating yogurt with active cultures daily while on the medication. If diarrhea becomes severe (watery, large volumes or more than 3-4/day) call the office. Women may experience yeast vaginitis due to alteration in the vaginal herminio. Symptoms include vaginal itching, irritation, and often a clumpy white discharge. If this occurs, there are several effective over the counter remedies available, including one-dose treatments. If these are unsuccessful, call the office. Antibiotics may interfer with control. If you are on oral contraceptives, use another form of protection (condoms, foams, jellies, diaphragm) for the next 1 month. LARS RESEDNEZ PA-C Prescriptions ordered this encounter Disp Refills Start End AMOXICILLIN 875 MG-POTASSIUM CLAVULA* 20 t* 0 09/06/2017 2017 Route: ORAL Sig: Take 1 tablet by mouth twice daily for 10 days. Encounter Status:Closed by LARS BLOCK on 09/06/17 ALLERGIES ALLERGIES DATE TYPE / CODE NAME / CODE REACTION SEVERITY SOURCE 05/02/2018 Drug Sulfa Rash Unknown [facility] Allergy/416 (Sulfonamide Hospital 654423(SNOM Antibiotics)/F00 Repository ED CT) 3541402(RXNORM) 11/06/2017 DRUG/407351 TETANUS TOXOID OTHER: SEE C [facility] 003(SNOMED [facility] [place] [facility]) Repository 09/06/2017 Drug SULFA RASH [facility] Class/06934 (SULFONAMIDE [facility] [place] 1003(SNOMED ANTIBIOTICS) Repository CT) Drug NO KNOWN [facility] Class/35900 ALLERGIES [facility] [place] [facility]3(SNOMED Repository CT) ENCOUNTERS ENCOUNTERS ADMIT/DISCHARGE ACCOUNT ADMITTING ENCOUNTER LOCATION SOURCE NUMBER CLASS 05/02/2018/05/02/20 [id number] [place] ing:ED Repository 11/06/2017/11/07/19 [id number] Ambulatory [address] [place] Repository 11/06/2017/11/09/19 [id number] Ambulatory [address] Repository 10/02/2017/10/03/19 [id number] Ambulatory [address] Repository 09/29/2017/09/30/19 [id number] Ambulatory [address] Repository 09/29/2017/10/02/19 [id number] Ambulatory [address] Repository 09/06/2017/09/08/19 [id number] Ambulatory [address] Repository PAYERS PAYERS ENCOUNTER GUARANTOR PAYER SUBSCRIBER SOURCE 05/02/2018 CORETTA Jo Primary COR[place]TA [place] [id number] Insurance:Aubree DEMARCODOB: Critical access hospital Number: [id number] [id number] Repository 132[address]Zph: [phone] Date:[phone] () [id number] [address]OZ: 05/02/2018 Secondary NOT GIVENELSA Deluca Insurance:SELF PAY [facility] Number: Effective Repository Date:2018-05-02
== END 2018-05-02 21:09 | disposition home or self-care (01) ==
PROVIDERS: Emergency Provider Emergency Medicine; Family Provider Family Medicine; PCP Family Medicine
DX: O21.9 Vomiting of pregnancy, unspecified (principal); Z3A.16 16 weeks gestation of pregnancy
CPT/HCPCS: 80048; 81001; 85025; 96361; 96374; 96375; 96376; 99284; J7030; A4216; J2405

== ENCOUNTER 2018-10-17 07:15 | Inpatient (IN) | payer OTHER, SELFPAY ==
[2018-10-17 07:30] VITALS: BMI 29.2
[2018-10-17] MEDS: Lactated Ringers 1,000 ML 50 ML IV (07:51)
--- NOTE | 2018-10-17 07:56 | HP.PCM_ITS ---
History and Physical Date of Admission: 10/17/18 OB HISTORY AND PHYSICAL EXAMINATION History of this : 33 yo female Ab0 with EDC 10/12/2018 by 11 weeks 3 days Ultrasound, presents to Labor and Delivery for induction of labor 40 5/7 wk EGA.. care remarkable for -\ 1.) BREAST PUMP RX GIVEN 07/20/18 EB, 2.) Pt's first cousin Muscular Dystrophy, CF testing declined 3.) SULFA allergy!!, Reaction to TDAP vaccine!!, 4.) First child with cleft palate, repaired at 6 mo of age 5.) AMA by time of delivery -- MSAFP WNL. Cell free DNA neg, female fetus 6.) Depression, Mother Bipolar. Both mother and sister had PP depression 7.) FIRST DELIVERY: FOURTH DEGREE Declines primary C/S delivery Pertinent Past Medical History: A positive Rubella IMMUNE - 03/24/18 Group B Strep - Negative 09/14/18 Allergies: Sulfa (Sulfonamide Antibiotics) Medications: During - MetroCream 0.75 % topical; Gummy 400 mcg-35 mg-25 mg-5 mg chewable tablet; Probiotic 10 billion cell capsule Review of Systems: Non-contributory PHYSICAL EXAMINATION General Appearance: 33 yo female in no acute distress Vital Signs: AF, VSS Heart: RRR without rubs or gallops Lungs: CTA x 2 Breasts: deferred Abdomen: gravid Pelvis: Cervix: 3-4/50/-2 AROM moderate amt Clear fluid. Scalp lead placed. Presentation: cephalic Station: Fetus: Size: AGA Movement: present Heart: 130-140s avg variability. ? deep variable deceleration noted , tracing int ermittent at time and pt sitting up completing paperwork. Accels noted Good variability. Overall category I tracing now. Impression /Plan: Intrauterine .40 5/7 wk induction of labor. H/O 4th degree laceration first delivery, declined C/S. Admit. Scalp lead placed d/t ? HR deep variable deceleration (tracing intermittent). Begin pitocin per protocol. Anticipate . See Progress Notes for Changes: Physician's Signature: Date:
[2018-10-17 08:04] LABS: Absolute Lymphocyte Count 1.98 X10^3/ul (0.83-4.51); Absolute Neutrophil Count 6.3 X10^3/uL (2.0-7.7); Basophil# 0.02 X10^3/uL; Basophil% 0.2 % (0-1); Eosinophil# 0.07 X10^3/uL; Eosinophils% 0.8 % (0-5); Hematocrit 33.2 % (37-47); Hemoglobin 10.7 g/dl (12.0-15.0); Lymphocyte # 1.98 X10^3/ul (4.0); Lymphocyte % 22.1 % (19-41); Mean Corp Hgb Conc 32.2 g/gl (32-36); Mean Corpuscular Hgb 27.4 pg (27.0-32.0); Mean Corpuscular Volume 85.1 fL (81-99); Mean Platelet Vol. 9.2 fl (6.2-12.0); Monocyte# 0.56 X10^3/uL; Monocyte% 6.3 % (0-10); Neutrophil # 6.28 X10^3/uL (2.7-7.7); Neutrophil % 70.3 % (47-70); Platelet Count 195 K/mm3 (150-450); RBC Distribution Width CV 14.5 % (11.6-14.6); RBC Distribution Width SD 44.8 fl (35.1-43.9); White Blood Count 8.9 K/mm3 (4.4-11.0)
[2018-10-17 08:07] LABS: POSITIVE COUNT NO; POSITIVE DIFFERENTIAL NO; POSITIVE MORPHOLOGY NO
[2018-10-17] MEDS: Oxytocin 30 units/NS 500 ml 30 UNITS/500 ML IV.SOLN IV (09:02)
[2018-10-17] MEDS: Ondansetron 4 MG/2 ML Vial IV (11:30)
--- NOTE | 2018-10-17 12:41 | PCM.PN.BLA ---
Progress Note LABOR INDUCTION PROGRESS NOTE Epidural in place. Still feeling a lot of pressure in lower abdomen. Advised may dose a little higher or push GERMINATION TESTING MANAGER button prn. AVSS Pitocin at 6 mIU/min CX: /-2 OP IFM: 120's with avg variability Accels. Occasional variable occasional early deceleration UCx q 2-3 minx A/P: 40 5/7 wk induction postdates. IFM category I tracing. Encourage position changes prn. May dose epidural or push GERMINATION TESTING MANAGER button prn. Anticipate .
[2018-10-17] MEDS: Oxytocin 30 units/NS 500 ml 30 UNITS/500 ML IV.SOLN 334 UNITS IV (14:12)
--- NOTE | 2018-10-17 14:17 | PCM.DCVAG ---
Discharge Diet: No Restrictions Discharge Activity: May Shower, May Take a Tub Bath May resume sexual activity in: 4-6 weeks Additional Activity Instructions:: Nothing in the vagina for 4-6 weeks. You may return to work/school in 6 weeks. Additional Instructions: If you experience any of the following, contact your healthcare provider. Bleeding that soaks a pad every hour for 2 hours Fever 100.4 or higher Unrelieved abdominal pain Problems urinating (including inability to urinate or burning while urinating). Visual changes Severe headache Flu-like symptoms Pain or redness in one of both of your breasts Pain, warmth, tenderness or swelling in your legs, especially the calf area Frequent nausea and vomiting Symptoms of depression or anxiety If you experience any of the following, call 911 or go to the nearest Emergency Room. Chest pain Problems breathing Seizure activity Partial or complete paralysis of a body part, slurred speech, weakness or drooping of the face, or a sudden inability to walk or hold your balance Allergies/Adverse Reactions: Allergies Sulfa (Sulfonamide Antibiotics) Allergy (Verified 10/17/18 07:31) Rash Medications to take at Discharge Pnv No.103/Folic/Om3s/Fish Oil [ Gummies] 2 tab PO DAILY 12/26/16 Please Follow Up With: Amna Naylor MD - [phone] When: Call to make an appointment with your doctor in 6 weeks. Primary Care Physician: Quan Chen MD [Primary Care Provider] - Test Results: Test results from this visit will be discussed in further detail at your follow-up appointment, if applicable. Proposed Discharge Date: 10/19/18
--- NOTE | 2018-10-17 14:18 | DCINST_ITS ---
Discharge Diet: No Restrictions Discharge Activity: May Shower, May Take a Tub Bath May resume sexual activity in: 4-6 weeks Additional Activity Instructions:: Nothing in the vagina for 4-6 weeks. You may return to work/school in 6 weeks. Additional Instructions: If you experience any of the following, contact your healthcare provider. * Bleeding that soaks a pad every hour for 2 hours * Fever 100.4 or higher * Unrelieved abdominal pain * Problems urinating (including inability to urinate or burning while urinating). * Visual changes * Severe headache * Flu-like symptoms * Pain or redness in one of both of your breasts * Pain, warmth, tenderness or swelling in your legs, especially the calf area * Frequent nausea and vomiting * Symptoms of depression or anxiety If you experience any of the following, call 911 or go to the nearest Emergency Room. * Chest pain * Problems breathing * Seizure activity * Partial or complete paralysis of a body part, slurred speech, weakness or drooping of the face, or a sudden inability to walk or hold your balance Allergies/Adverse Reactions: Allergies Sulfa (Sulfonamide Antibiotics) Allergy (Verified 10/17/18 07:31) Rash Medications to take at Discharge Pnv No.103/Folic/Om3s/Fish Oil [ Gummies] 2 tab PO DAILY 12/26/16 Please Follow Up With: Amna Naylor MD - [phone] When: Call to make an appointment with your doctor in 6 weeks. Primary Care Physician: Quan Chen MD [Primary Care Provider] - Test Results: Test results from this visit will be discussed in further detail at your follow- up appointment, if applicable. Proposed Discharge Date: 10/19/18
[2018-10-17] MEDS: Oxytocin 30 units/NS 500 ml 30 UNITS/500 ML IV.SOLN 167 UNITS IV (14:43)
[2018-10-17] MEDS: Ibuprofen 600 MG Tablet PO (18:58)
[2018-10-17 20:00] VITALS: BP 123/76; PULSE 85; RESP 16; TEMP 36.7; O2SAT 97
[2018-10-17] MEDS: Acetaminophen 500 MG Tablet 1000 MG PO (21:37)
[2018-10-17 23:59] VITALS: BP 124/84; PULSE 77; RESP 16; TEMP 36.6; O2SAT 97
[2018-10-18] MEDS: Ibuprofen 600 MG Tablet PO ×2 (01:57→09:58)
[2018-10-18] MEDS: Senna/Docusate Sodium 1 Tablet PO (01:57)
[2018-10-18 04:30] VITALS: BP 113/71; PULSE 68; RESP 14; TEMP 37.4; O2SAT 98
--- NOTE | 2018-10-18 04:30 | NURSING ---
Pt. temporal temperature 99.3. Pt. under multiple blankets and heating pad. Advised to remove one of the blankets. Will continue to monitor.
[2018-10-18 04:49] LABS: Hematocrit 29.9 % (37-47); Hemoglobin 9.6 g/dl (12.0-15.0); Mean Corp Hgb Conc 32.1 g/gl (32-36); Mean Corpuscular Hgb 27.4 pg (27.0-32.0); Mean Corpuscular Volume 85.4 fL (81-99); Mean Platelet Vol. 8.7 fl (6.2-12.0); Platelet Count 212 K/mm3 (150-450); RBC Distribution Width CV 14.3 % (11.6-14.6); RBC Distribution Width SD 42.9 fl (35.1-43.9); White Blood Count 10.4 K/mm3 (4.4-11.0)
[2018-10-18 04:50] LABS: Scan Indicated on CBC? Y/N NO
[2018-10-18] MEDS: Acetaminophen 500 MG Tablet 1000 MG PO ×2 (05:35→15:23)
--- NOTE | 2018-10-18 07:35 | PCM.OPRPT ---
Vaginal Delivery Maternal Presentation: Medically Indicated Induction 40 5/7 wk EGA . h/o 4th deg tear with vaginal delivery prior. Method of Induction: Pitocin, Amniotomy Medical Reason for Induction: Post term Amniotic Membrane Rupture Type: Artificial Amniotic Fluid Description: Clear Final LORNA: 10/12/18 Final LORNA Source: US <20 weeks Gestational age: 40 Weeks and 5 Days Date of Procedure: 10/17/18 Pre-Operative Diagnosis: 40 5/7 wk EGA induction Post-Operative Diagnosis: Same Surgery/ Procedure Performed: Vacuum Assisted Vaginal Delivery Type of Anesthesia: Epidural Description of Procedure: Vacuum assisted vaginal delivery. Vacuum assisted descent 2/2 FHR deceleration noted with pushing Vtx OP and at +2 station. Two pulls into green zone with pop offs x two. Episiotomy created and pressure to perineum resulted in delivery of ng viable female Ap 01/23 direct OP . shoulders delivered easily. to maternal abdomen with spont , vigorous cry. Cord clamped times two and cut. PP exam; 3rd degree extension of 2nd deg episiotomy repaired to hemostatic and intact with 2-0 Vicryl interrupted suture and 3-0 Vicryl. No other lacerations noted. Placenta delivered by spont expulsion, expression. 3V normal appearing and intact with trailing membranes. EBL 300 cc Pt and infant tolerated delivery well. To recovery, stable condition. Ray Joshua and needle counts correct times two Presentation: Vertex - Direct OP Placental Delivery Description: Spontaneous, Expressed Placenta Disposition: [facility] Cord Vessel Description: 3 Vessels Cord Entanglement: Around neck x 1, loose Drain: Parker to straight drain Estimated Blood Loss: 300 Infant A gender: Female (1 minute): 9 (5 minute): 9 Episiotomy Description: Midline, 2nd degree Laceration: Perineal Extension/lac, Vaginal Extension/lac, 3rd degree Medications given after delivery: IV Pitocin Complications: None
--- NOTE | 2018-10-18 07:41 | PCM.PN.OB ---
Subjective: PPD#1 Vaginal delivery. Vacuum assisted descent Doing well. Would like to go home today if baby is released. - Physical Exam General: Alert, Oriented x3, Cooperative, No apparent distress HEENT: Atraumatic Neck: Supple Abdomen: Soft - Fundus firm NT at 1-2 cm inferior to umbilicus Neurological: Cranial nerves II-XII grossly intact Psych/Mental Status: Normal Affect Vital Signs Temp Pulse Resp BP Pulse Ox 99.3 F H 68 14 113/71 98 10/18/18 04:30 10/18/18 04:30 10/18/18 04:30 10/18/18 04:30 10/18/18 04:30 Oxygen Delivery Method Room Air Weight: 72.575 kg Body Mass Index (BMI) 29.2 Intake and Output for Last 24 Hours 10/16/18 10/17/18 10/18/18 23:59 23:59 23:59 Intake Total 2005 Output Total 250 / 250 Balance 1756 / 1756 Laboratory Tests Past 24 Hrs 10/17/18 10/17/18 10/18/18 07:40 07:40 04:38 WBC 8.9 10.4 RBC 3.90 L 3.50 L Hgb 10.7 L 9.6 L Hct 33.2 L 29.9 L MCV 85.1 85.4 MCH 27.4 27.4 MCHC 32.2 32.1 RDW 14.5 14.3 RDW Differential 44.8 H 42.9 Plt Count 195 212 MPV 9.2 8.7 Immature Gran % (Auto) 0.300 Neut % (Auto) 70.3 H Lymph % (Auto) 22.1 [place] % (Auto) 6.3 Eos % (Auto) 0.8 Baso % (Auto) 0.2 Absolute Neuts (auto) 6.3 Absolute Lymphs (auto) 1.98 Total Counted Not Reportable Blood Type A POSITIVE Antibody Screen NEGATIVE Medical Necessity - Tobacco Use Smoking Status: Never smoker Assessment/Plan PPD#1 Vaginal delivery 3rd deg laceration Stable pp. Dischg home today if baby is released. RTO in 6 wk for pp check, prn sooner if concerns.
[2018-10-18 09:10] VITALS: BP 132/62; PULSE 83; RESP 16; TEMP 36.5
[2018-10-18 12:45] VITALS: BP 138/84; PULSE 80; RESP 18; TEMP 37.1
[2018-10-18] MEDS: Prenatal Vits Tablet 1 TABLET PO (12:53)
[2018-10-18 17:00] VITALS: BP 127/87; PULSE 70; RESP 18; TEMP 37.3
== END 2018-10-18 18:10 | disposition home or self-care (01) | DRG 768 ==
PROVIDERS: Admitting Provider Obstetrics & Gynecology; Family Provider Family Medicine; PCP Family Medicine; Referring Provider Obstetrics & Gynecology; Visit Provider Obstetrics & Gynecology
DX: O48.0 Post-term pregnancy (principal); Z37.0 Single live birth; O70.20 Third degree perineal laceration during delivery, unspecified; Z3A.40 40 weeks gestation of pregnancy; O76 Abnormality in fetal heart rate and rhythm complicating labor and delivery; O69.81X0 Labor and delivery complicated by cord around neck, without compression, not applicable or unspecified
CPT/HCPCS: 59050; 85025; 85027; 86850; 86900; 99218; J7120; G0378; J2405

== ENCOUNTER → 2019-02-08 | Outpatient (CLI) | payer OTHER, SELFPAY ==
[2019-02-08 11:23] LABS: Free T3 2.6 pg/mL (2.18-3.98); Thyroid Stim Hormone (TSH) 1.94 uIU/mL (0.358-3.74)
== END | disposition home or self-care (01) ==
LOC: WOBLAB 10:31
PROVIDERS: Visit Provider Obstetrics & Gynecology
DX: F41.9 Anxiety disorder, unspecified (principal)
CPT/HCPCS: 36415; 84443; 84481

== ENCOUNTER → 2019-02-14 | Outpatient (CLI) | payer OTHER, SELFPAY | END | disposition home or self-care (01) | PROVIDERS: Family Provider Family Medicine; PCP Family Medicine; Referring Provider Obstetrics & Gynecology; Visit Provider Obstetrics & Gynecology | DX: R00.0 Tachycardia, unspecified (principal) | CPT/HCPCS: 93225; 93226 ==

== ENCOUNTER → 2020-06-03 09:41 | Outpatient (CLI) | payer OTHER, SELFPAY ==
[2020-06-03 09:06] VITALS: BMI 24.8
[2020-06-03 12:53] LABS: Absolute Lymphocyte Count 1.43 X10^3/uL (0.83-4.51); Absolute Neutrophil Count 2.5 X10^3/uL (2.0-7.7); Basophil# 0.02 X10^3/uL; Basophil% 0.5 % (0-1); Eosinophil# 0.08 X10^3/uL; Eosinophils% 1.8 % (0-5); Hematocrit 40.2 % (37-47); Hemoglobin 13.1 g/dL (12.0-15.0); Lymphocyte # 1.43 X10^3/ul (4.0); Lymphocyte % 32.4 % (19-41); Mean Corp Hgb Conc 32.6 g/dL (32-36); Mean Corpuscular Hgb 29.7 pg (27.0-32.0); Mean Corpuscular Volume 91.2 fL (81-99); Monocyte# 0.34 X10^3/uL; Monocyte% 7.7 % (0-10); NRBC Flagged by Analyzer 0 % (0-5); Neutrophil # 2.52 X10^3/uL (2.7-7.7); Neutrophil % 57.1 % (47-70); Platelet Count 314 K/mm3 (150-450); RBC Distribution Width CV 11.9 % (11.6-14.6); RBC Distribution Width SD 40.1 fl (35.1-43.9); Red Blood Count 4.41 M/mm3 (4.2-5.4); White Blood Count 4.4 K/mm3 (4.4-11.0)
[2020-06-03 13:01] LABS: ALB/GLOB Ratio 1.3 RATIO (0.9-2.4); AST(SGOT) 16 U/L (15-37); Alanine Aminotransfer ALT/SGPT 27 U/L (13-56); Alkaline Phosphatase 50 U/L (45-117); Anion Gap 7 (5-15); BUN 9 mg/dL (7-18); Calcium,Total 8.9 mg/dL (8.5-10.1); Chloride 107 mmol/L (98-107); Creatinine, Serum 0.69 mg/dL (0.55-1.02); EST Glomerular Filtration Rate 102 mL/min (>60); Est Glom Filt Rate - Afr Amer 123 mL/min (>60); Globulin 3.1 g/dL (2.2-4.2); Glucose 67 mg/dL (74-106); Protein, Total 7.1 g/dL (6.4-8.2); Sodium Level 141 mmol/L (136-145)
== END ==
PROVIDERS: PCP Family Medicine; Visit Provider Internal Medicine
DX: F41.1 Generalized anxiety disorder (principal)
CPT/HCPCS: 36415; 80053; 85025

== ENCOUNTER → 2021-09-08 | Outpatient (CLI) | payer OTHER, SELFPAY ==
[2021-09-08 12:25] LABS: Absolute Lymphocyte Count 1.47 X10^3/uL (0.83-4.51); Absolute Neutrophil Count 2.1 X10^3/uL (2.0-7.7); Basophil# 0.05 X10^3/uL; Basophil% 1.2 % (0-1); Eosinophil# 0.17 X10^3/uL; Hematocrit 39.6 % (37-47); Hemoglobin 13.2 g/dL (12.0-15.0); Lymphocyte # 1.47 X10^3/ul (0.83-4.51); Lymphocyte % 34.3 % (19-41); Mean Corp Hgb Conc 33.3 g/dL (32-36); Mean Corpuscular Hgb 30.4 pg (27.0-32.0); Mean Corpuscular Volume 91.2 fL (81-99); Mean Platelet Vol. 8.9 fl (6.2-12.0); Monocyte# 0.45 X10^3/uL; Monocyte% 10.5 % (0-10); NRBC Flagged by Analyzer 0 % (0-5); Neutrophil # 2.14 X10^3/uL (2.7-7.7); Neutrophil % 49.8 % (47-70); Platelet Count 276 K/mm3 (150-450); RBC Distribution Width SD 40.7 fl (35.1-43.9); Red Blood Count 4.34 M/mm3 (4.2-5.4); White Blood Count 4.3 K/mm3 (4.4-11.0)
[2021-09-08 12:39] LABS: ALB/GLOB Ratio 1.1 RATIO (0.9-2.4); AST(SGOT) 19 U/L (15-37); Alanine Aminotransfer ALT/SGPT 28 U/L (13-56); Albumin, Serum 3.9 g/dL (3.2-5.0); Alkaline Phosphatase 67 U/L (45-117); Anion Gap 4 (5-15); BUN 9 mg/dL (7-18); BUN/Creat Ratio 13.7 RATIO (10-20); Calcium,Total 9.5 mg/dL (8.5-10.1); Chloride 108 mmol/L (98-107); Cholesterol 193 mg/dL (200); Creatinine, Serum 0.66 mg/dL (0.55-1.02); EST Glomerular Filtration Rate 107 mL/min (>60); Est Glom Filt Rate - Afr Amer 129 mL/min (>60); Globulin 3.6 g/dL (2.2-4.2); Glucose 79 mg/dL (74-106); High Density Lipoprotein 53 mg/dL; Protein, Total 7.5 g/dL (6.4-8.2); Sodium Level 138 mmol/L (136-145); Triglycerides 130 mg/dL; Very Low Density Lipoprotein 26 mg/dL (5-40)
== END | disposition home or self-care (01) ==
LOC: BIMLAB 10:54
PROVIDERS: PCP Internal Medicine; Referring Provider Internal Medicine; Visit Provider Internal Medicine
DX: Z00.00 Encounter for general adult medical examination without abnormal findings (principal)
CPT/HCPCS: 36415; 80053; 80061; 85025